=== PATIENT | female | born 1995 | race Caucasian/White ===

== ENCOUNTER 2022-05-02 04:40 | Inpatient (IN) | payer SELFPAY, OTHER ==
[2022-05-02] VITALS (52 sets, daily range): BP systolic 95–161; BP diastolic 59–111; PULSE 52–115; TEMP 36.4–36.8; O2SAT 85–100; BMI 27.6
[2022-05-02] MEDS: Lactated Ringers 1,000 ML 999 ML IV (05:45)
[2022-05-02 06:01] LABS: Absolute Lymphocyte Count 1.39 X10^3/uL (0.83-4.51); Absolute Neutrophil Count 8.8 X10^3/uL (2.0-7.7); Basophil# 0.01 X10^3/uL; Basophil% 0.1 % (0-1); Eosinophil# 0.02 X10^3/uL; Eosinophils% 0.2 % (0-5); Hematocrit 32.9 % (37-47); Hemoglobin 10.2 g/dL (12.0-15.0); Lymphocyte # 1.39 X10^3/ul (0.83-4.51); Lymphocyte % 12.5 % (19-41); Mean Corpuscular Hgb 24.7 pg (27.0-32.0); Mean Corpuscular Volume 79.7 fL (81-99); Mean Platelet Vol. 10.8 fl (6.2-12.0); Monocyte# 0.78 X10^3/uL; NRBC Flagged by Analyzer 0 % (0-5); Neutrophil # 8.83 X10^3/uL (2.7-7.7); Neutrophil % 79.4 % (47-70); Platelet Count 239 K/mm3 (150-450); RBC Distribution Width CV 14.5 % (11.6-14.6); RBC Distribution Width SD 41.6 fl (35.1-43.9); Red Blood Count 4.13 M/mm3 (4.2-5.4); White Blood Count 11.1 K/mm3 (4.4-11.0)
[2022-05-02 06:30] LABS: Bacteria 0 SEEN /hpf (None Seen); Mucous, Urine 0 SEEN /hpf (<or=2+); White Blood Cells 0 SEEN /hpf (0-5)
[2022-05-02 06:44] LABS: Color, Urine Red (Yellow); Glucose, Dipstick Normal (Normal); Ketone-Dipstick 5 mg/dl (Negative); Leukocyte Esterase-Dipstick 500 /ul (Negative); Nitrite-Dipstick Positive (Negative); Occult Blood-Urine 250 /ul (Negative); Protein-Dipstick 100 mg/dl (Negative); Specific Gravity, Urine 1.015 (1.002-1.030); Urine Bilirubin Dipstick Negative (Negative); Urine Clarity Cloudy (Clear); Urine Urobilinogen 1 mg/dl (Normal); Urine pH 6.5 (5.0 - 8.0)
[2022-05-02] MEDS: Acetaminophen 500 MG Tablet PO (06:51)
[2022-05-02 06:59] LABS: Amphetamine Urine VISTA NEGATIVE (<1000 ng/mL); Barbiturate Urine VISTA NEGATIVE (< 200 ng/mL); Benzodiazepine Urine VISTA NEGATIVE (< 200 ng/mL); Cocaine Urine VISTA NEGATIVE (< 300 ng/mL); Ecstacy Urine VISTA NEGATIVE (< 500 ng/mL); Methadone Urine VISTA NEGATIVE (< 300 ng/mL); PCP Urine VISTA NEGATIVE (< 25 ng/mL); Red Blood Cells-Urine > 100 SEEN /hpf (0-5); Squamous Epithelial Cells - UA 5-10 SEEN /hpf (5-10); THC Urine VISTA NEGATIVE (< 50 ng/mL); Vista UDS pH Range 6
[2022-05-02] MEDS: Oxytocin 30 units/NS 500 ml 30 UNITS/500 ML IV.SOLN IV (07:09)
[2022-05-02 08:17] LABS: Group B Strep DNA By PCR Negative (Negative); Internal Control PASS; Probe Check PASS; Specimen Processing Control PASS
[2022-05-02 08:28] LABS: Chlamydia Trachomatis by PCR Negative (Negative); Neisserai gonorrhoeae by PCR Negative (Negative); Probe Check PASS; Sample Adequacy Control PASS; Specimen Processing Control PASS
[2022-05-02 08:44] LABS: Rubella IgG Reactive (Nonreactive); Syphilis Antibodies Non-reactive
[2022-05-02 10:00] LABS: HIV - WCH Non-Reactive (Nonreactive); Hepatitis B Surface Antigen Non-Reactive (Nonreactive); Hepatitis C Antibody Non-Reactive (Nonreactive)
[2022-05-02] MEDS: Lactated Ringers 1,000 ML 200 ML IV ×2 (10:10→14:28)
[2022-05-02] MEDS: Penicillin G 3,000,000 Units 50 ML 100 UNITS IV ×2 (10:10→14:28)
[2022-05-02] MEDS: fentaNYL 100 MCG/2 ML Ampul IV (10:19)
[2022-05-02] MEDS: LACTATED RINGERS 500 ML 999 ML IV (12:12)
[2022-05-02] MEDS: fentaNYL-bupivacaine (epidural) 100 ML BAG EPIDURAL ×2 (13:16→17:55)
--- NOTE | 2022-05-02 17:32 | HP.PCM.OB_ITS ---
HPI - General General Date of Admission: 05/02/22 HPI Narrative LEIGH RILEY, is a 26 F who presents with 24 ROM presents from home had care by a stock layer Evert. she denies any fevers or abdominal pain denies any vb. PFSH PFSH Medical History no medical history Home Medications [id number] 1 mg tablet 1 tab PO DAILY 05/02/22 [History Last Taken 04/30/22 21:00] Allergy/AdvReac Type Severity Reaction Status Date / Time No Known Allergies Allergy Verified 05/02/22 05:07 Surgical History no surgical history Social History Smoking Status: Never smoker History Elective abortions Hx Para 0 Spontaneous abortions Hx # Term Pregnancies Ectopic pregnancies Hx # Pregnancies Multiple births # of living children NST FHR Rate Baby A Baseline: 130 Variability:: Moderate Accelerations:: 15 x 15 Decelerations:: None NST Reactive:: Yes FHR Category:: Category I Uterine Activity:: irregular ROS Constitutional Constitutional: Reports systems reviewed and no addt'l complaints, except as documented Eyes Eyes: Denies change in vision ENT HEENT: Reports systems reviewed and no addt'l complaints, except as documented; Denies headache(s) Cardiovascular Cardiovascular: Reports systems reviewed and no addt'l complaints, except as documented; Denies chest pain or dyspnea Respiratory/Chest Respiratory/Chest: Reports systems reviewed and no addt'l complaints, except as documented Gastrointestinal Gastrointestinal: Reports systems reviewed and no addt'l complaints, except as documented; Denies abdominal pain Genitourinary Genitourinary: Reports systems reviewed and no addt'l complaints, except as documented, contractions Details: present (irregular) and movement Details: present; Denies dysuria or genital lesions Musculoskeletal Musculoskeletal: Reports systems reviewed and no addt'l complaints, except as documented Neurologic Neurologic: Reports systems reviewed and no addt'l complaints, except as documented Endocrine Endocrinology: Reports systems reviewed and no addt'l complaints, except as documented Vital Signs Vital Signs Vital Signs: 05/02/22 05:18 05/02/22 05:18 05/02/22 05:20 Temperature Temperature Source Temporal Pulse Rate 94 Blood Pressure BP Systolic BP Diastolic Pulse Ox 98 05/02/22 05:20 05/02/22 05:20 05/02/22 05:20 Temperature 97.6 F L Temperature Source Pulse Rate 84 Blood Pressure 117/71 BP Systolic 117 BP Diastolic 71 Pulse Ox 05/02/22 07:22 05/02/22 07:22 05/02/22 07:22 Temperature Temperature Source Temporal Pulse Rate 70 Blood Pressure 121/70 H BP Systolic 121 BP Diastolic 70 Pulse Ox 05/02/22 07:22 05/02/22 08:27 05/02/22 08:27 Temperature 97.6 F L Temperature Source Pulse Rate 74 Blood Pressure 131/74 H BP Systolic 131 BP Diastolic 74 Pulse Ox 05/02/22 08:27 05/02/22 08:27 05/02/22 09:44 Temperature 97.6 F L Temperature Source Temporal Pulse Rate Blood Pressure 118/77 BP Systolic 118 BP Diastolic 77 Pulse Ox 05/02/22 09:44 05/02/22 09:43 05/02/22 09:43 Temperature Temperature Source Temporal Pulse Rate 92 Blood Pressure BP Systolic BP Diastolic Pulse Ox 98 05/02/22 09:43 05/02/22 10:58 05/02/22 10:58 Temperature 97.9 F Temperature Source Temporal Pulse Rate Blood Pressure 132/68 H BP Systolic 132 BP Diastolic 68 Pulse Ox 05/02/22 10:58 05/02/22 10:58 05/02/22 10:58 Temperature 97.9 F Temperature Source Pulse Rate 68 Blood Pressure BP Systolic BP Diastolic Pulse Ox 96 05/02/22 12:43 05/02/22 12:43 05/02/22 12:43 Temperature Temperature Source Temporal Pulse Rate 71 Blood Pressure 134/82 H BP Systolic 134 BP Diastolic 82 Pulse Ox 05/02/22 12:43 05/02/22 12:43 05/02/22 12:58 Temperature 97.8 F Temperature Source Pulse Rate 104 H Blood Pressure BP Systolic BP Diastolic Pulse Ox 100 05/02/22 12:58 05/02/22 13:03 05/02/22 13:03 Temperature Temperature Source Pulse Rate 98 Blood Pressure BP Systolic BP Diastolic Pulse Ox 100 99 05/02/22 13:05 05/02/22 13:05 05/02/22 13:08 Temperature Temperature Source Pulse Rate 92 83 Blood Pressure 128/77 H BP Systolic 128 BP Diastolic 77 Pulse Ox 05/02/22 13:08 05/02/22 13:09 05/02/22 13:09 Temperature Temperature Source Pulse Rate 85 Blood Pressure 120/77 BP Systolic 120 BP Diastolic 77 Pulse Ox 100 05/02/22 13:13 05/02/22 13:13 05/02/22 13:14 Temperature Temperature Source Pulse Rate 98 Blood Pressure 118/66 BP Systolic 118 BP Diastolic 66 Pulse Ox 98 05/02/22 13:14 05/02/22 13:18 05/02/22 13:18 Temperature Temperature Source Pulse Rate 77 80 Blood Pressure BP Systolic BP Diastolic Pulse Ox 100 05/02/22 13:20 05/02/22 13:20 05/02/22 13:23 Temperature Temperature Source Pulse Rate 77 84 Blood Pressure 121/70 H BP Systolic 121 BP Diastolic 70 Pulse Ox 05/02/22 13:23 05/02/22 13:25 05/02/22 13:25 Temperature Temperature Source Pulse Rate 93 Blood Pressure 120/69 BP Systolic 120 BP Diastolic 69 Pulse Ox 100 05/02/22 13:28 05/02/22 13:28 05/02/22 13:30 Temperature Temperature Source Pulse Rate 82 Blood Pressure 110/59 L BP Systolic 110 BP Diastolic 59 Pulse Ox 100 05/02/22 13:30 05/02/22 13:30 05/02/22 13:33 Temperature Temperature Source Pulse Rate 88 79 Blood Pressure BP Systolic BP Diastolic Pulse Ox 94 05/02/22 13:33 05/02/22 13:34 05/02/22 13:34 Temperature Temperature Source Pulse Rate 82 Blood Pressure 120/63 BP Systolic 120 BP Diastolic 63 Pulse Ox 100 05/02/22 13:36 05/02/22 13:36 05/02/22 13:38 Temperature Temperature Source Pulse Rate 96 85 Blood Pressure BP Systolic BP Diastolic Pulse Ox 85 05/02/22 13:38 05/02/22 13:39 05/02/22 13:39 Temperature Temperature Source Pulse Rate 96 Blood Pressure 115/67 BP Systolic 115 BP Diastolic 67 Pulse Ox 100 05/02/22 13:43 05/02/22 13:43 05/02/22 13:44 Temperature Temperature Source Pulse Rate 75 Blood Pressure 109/61 BP Systolic 109 BP Diastolic 61 Pulse Ox 100 05/02/22 13:44 05/02/22 13:48 05/02/22 13:48 Temperature Temperature Source Pulse Rate 67 62 Blood Pressure BP Systolic BP Diastolic Pulse Ox 100 05/02/22 13:49 05/02/22 13:49 05/02/22 14:16 Temperature Temperature Source Pulse Rate 64 Blood Pressure 111/62 95/62 BP Systolic 111 95 BP Diastolic 62 62 Pulse Ox 05/02/22 14:16 05/02/22 14:16 05/02/22 14:16 Temperature 97.9 F Temperature Source Temporal Pulse Rate 81 Blood Pressure BP Systolic BP Diastolic Pulse Ox 05/02/22 14:49 05/02/22 14:49 05/02/22 14:48 Temperature Temperature Source Pulse Rate 78 Blood Pressure 111/65 BP Systolic 111 BP Diastolic 65 Pulse Ox 100 05/02/22 14:49 05/02/22 14:49 05/02/22 16:05 Temperature 97.9 F Temperature Source Temporal Pulse Rate Blood Pressure 120/73 BP Systolic 120 BP Diastolic 73 Pulse Ox 05/02/22 16:05 05/02/22 16:04 05/02/22 16:04 Temperature Temperature Source Temporal Pulse Rate 83 Blood Pressure BP Systolic BP Diastolic Pulse Ox 99 05/02/22 16:04 05/02/22 17:12 05/02/22 17:12 Temperature 97.8 F Temperature Source Pulse Rate 85 Blood Pressure 109/69 BP Systolic 109 BP Diastolic 69 Pulse Ox 05/02/22 17:11 05/02/22 17:11 05/02/22 17:11 Temperature 97.8 F Temperature Source Temporal Pulse Rate Blood Pressure BP Systolic BP Diastolic Pulse Ox 100 Weight Weight: 150 lb 12.8 oz Body Mass Index (BMI) 27.6 Physical Exam Const alert, oriented x3, no apparent distress and healthy appearing HEENT normocephalic and moist oral mucous membranes Head and Scalp: atraumatic Neck full ROM, no lymphadenopathy, supple and thyroid normal General: trachea midline Lymph Lymphatic: no lymphadenopathy noted Chest inspection of chest normal Resp normal respiratory effort Cardio regular rate GI normal to inspection, nondistended, normoactive bowel sounds, soft to palpation and non-tender Inspection: gravid external exam normal Manual OB Exam: estimated gestational size appropriate, presentation cephalic, dilated, effaced and station Extremity normal to inspection General Extremity: Negative for edema Skin no rashes or lesions noted Neuro no focal motor deficits and deep tendon reflexes 2+ bilaterally Motor Exam: strength 5/5 throughout and clonus absent Psych mental status grossly normal Labs Labs Labs: Blood Type A POSITIVE Antibody Screen NEGATIVE Hct 32.9 % (37-47) L Hgb 10.2 g/dL (12.0-15.0) L Syphilis Total Ab Non-reactive Rubella IgG Antibody Reactive (Nonreactive) Hep Bs Antigen Non-Reactive (Nonreactive) HIV 1&2 Antibody Non-Reactive (Nonreactive) Group B Strep DNA Negative (Negative) Assessment & Plan (1) : COMMENT: care with stock layer evert (2) Prolonged rupture of membranes: COMMENT: PCN, pitocin started PLAN: Plan Patient presents with prolonged ROM plan IOL, plan management for with pitocin/AROM. Pain management: open to epidural. GBS unknown plan PCN due to risk factor assessment. Management of any complications: none I have reviewed the [facility] and made any clinically relevant updates.
--- NOTE | 2022-05-02 17:34 | EX.PCM.OBRPT ---
Vaginal Delivery Operative Information Date of Procedure: 05/02/22 Pre-Operative Diagnosis: IOL prolonged ROM Post-Operative Diagnosis: same Surgery / Procedure Performed: Spontaneous Vaginal Delivery Type of Anesthesia: Epidural Special Medications: none Estimated Blood Loss: 300 Fluids Replaced: crystalloid Findings Description of Procedure: Patient began pushing and delivered the head in the BLANCA presentation. The head was delivered atraumatically. The anterior and posterior shoulders delivered without complication followed by the rest of the infant and the was placed on the maternal abdomen. Delayed cord clamping was employed for approximately 60 seconds. Cord was clamped and cut and gentle traction was applied to the cord and the placenta delivered spontaneously immediately following it was noted to be intact with three-vessel cord. The perineum and vagina were inspected and noted to have a left vaginal first degree laceration repaired in the usual fashion with 3-0 rapide. EBL was 300. Patient and infant tolerated delivery well. Presentation: BLANCA Amniotic Membrane Rupture Type: Artificial Amniotic Fluid Description: Clear Placental Delivery Description: Spontaneous Placenta Disposition: [facility] Cord Vessel Description: 3 Vessels Cord Entanglement: None Infant A Gender: Male Delayed Cord Clamping: Yes Post Vaginal Delivery Medications Given After Delivery: IV Pitocin Episiotomy Description: None Laceration: Vaginal Extension/lac and 1st degree Complication Complications: None Procedures Urinary/Genital [id number]: [id number] Vaginal Delivery+ Care([facility])
--- NOTE | 2022-05-02 17:46 | DCINST_ITS ---
Discharge Instructions Diet Discharge Diet: No restrictions Activity Discharge Activity: Return to Normal Activity, May Drive, May Shower and May Take a Tub Bath (in 4 weeks) May resume sexual activity in: 6-8 weeks (after seen by OB provider) Weight Bearing Status: Full weight bearing Lifting Restrictions: none Dressing / Incision Call your doctor if you observe: Fever of 101 or Higher, Inability to urinate, Using more than 1 pad per hour (for more than 2 hours in a row or more), Shortness of breath, Dizziness, Chest pain and - (headache not controlled with tylenol, change in vision) Follow Up Care When: in 6 weeks for visit, call the office to make the appointment. If you had elevated blood pressures call the office to be seen within 1 week. Test Results: Test results from this visit will be discussed in further detail at your follow- up appointment, if applicable. Discharge Plan Admission Admit Date/Time: 05/02/22 04:40 Attending Provider: Rose Hansen Primary Care Provider: Care Physician,Aaliyah Primary Discharge Orders/Prescriptions Prescriptions: No Action 1 mg Tablet 1 tab PO DAILY Referrals / Follow Up: Care Physician,No Primary [Primary Care Provider] - Disposition Disposition (needs filled in before D/C Order can be placed): Home, Self Care
[2022-05-02] MEDS: Oxytocin 30 units/NS 500 ml 30 UNITS/500 ML IV.SOLN 334 UNITS IV (18:39)
[2022-05-03] VITALS (15 sets, daily range): BP systolic 90–146; BP diastolic 49–71; PULSE 80–120; RESP 16; TEMP 36.2–36.9; O2SAT 95–98
[2022-05-03] MEDS: Acetaminophen 500 MG Tablet 1000 MG PO (00:14)
[2022-05-03] MEDS: Ibuprofen 400 MG Tablet 800 MG PO ×2 (06:30→19:04)
--- NOTE | 2022-05-03 07:58 | PCM.PN.OB ---
Subjective Subjective Patient doing well without complaints. Tolerating PO. Ambulating and voiding without difficulty. feeding well. Denies chest pain, shortness of breath, calf pain/swelling, fevers, chills, lightheadedness. Objective Data Objective Data Vital Signs: Vital Signs Temp Pulse Resp BP Pulse Ox O2 Del Method 98.2 F 80 16 90/49 L 98 Room Air 05/03/22 03:33 05/03/22 07:46 05/03/22 03:33 05/03/22 07:46 05/03/22 07:45 05/03/22 03:33 Oxygen Delivery Method Room Air Weight: 150 lb 12.8 oz Body Mass Index (BMI) 27.6 Intake & Output: Intake and Output for Last 24 Hours 05/01/22 05/02/22 05/03/22 23:59 23:59 23:59 Intake Total 4030.87 / 4030.87 Output Total 400 / 400 900 / 900 Balance 3630.87 / 3630.87 -900 / -900 Lab / Micro Data Result Diagrams: 05/02/22 05:43 Labs: Laboratory Results - last 24 hr 05/02/22 05:43: Syphilis Total Ab Non-reactive, Rubella IgG Antibody Reactive 05/02/22 05:43: Hep Bs Antigen Non-Reactive, Hepatitis C Antibody Non-Reactive, HIV 1&2 Antibody Non-Reactive 05/02/22 05:57: Chlam trachomat DNA PCR Negative, N.gonorrhoeae DNA (PCR) Negative, Group B Strep DNA Negative, Specimen Comment Not Reportable ROS Constitutional Constitutional: Reports systems reviewed and no addt'l complaints, except as documented Cardiovascular Cardiovascular: Reports systems reviewed and no addt'l complaints, except as documented Respiratory/Chest Respiratory/Chest: Reports systems reviewed and no addt'l complaints, except as documented Gastrointestinal Gastrointestinal: Reports systems reviewed and no addt'l complaints, except as documented Physical Exam Const alert, oriented x3 and no apparent distress HEENT Head and Scalp: atraumatic Resp normal respiratory effort GI soft to palpation and non-tender Bimanual Exam - Vag & Uterus: uterus non-tender Uterus Palpation: uterus fundus firm (below Umbilicus) Assessment & Plan (1) Prolonged rupture of membranes: COMMENT: PCN, pitocin started (2) : COMMENT: care with track laying supervisor alexi (3) Vaginal delivery: COMMENT: MARSHALL Currie PROM 40 associate field service engineer patient PLAN: Plan s/p PPD # 1 1. routine post delivery care 2. breast feeding- support given 3. rh positive 4. rubella immune
[2022-05-04 02:27] VITALS: BP 108/66; PULSE 83; RESP 14; TEMP 36.1
[2022-05-04 08:53] VITALS: BP 121/71; PULSE 100; PULSE 103; PULSE 93; RESP 16; TEMP 36.8; O2SAT 98
--- NOTE | 2022-05-04 09:12 | PN.OBGYN_ITS ---
Subjective Subjective Patient doing well without complaints. Tolerating PO. Ambulating and voiding without difficulty. feeding well. Denies chest pain, shortness of breath, calf pain/swelling, fevers, chills, lightheadedness. Objective Data Objective Data Vital Signs: Vital Signs Temp Pulse Resp BP Pulse Ox O2 Del Method 98.2 F 100 16 121/71 H 98 Room Air 05/04/22 08:53 05/04/22 08:53 05/04/22 08:53 05/04/22 08:53 05/04/22 08:53 05/04/22 08:53 Oxygen Delivery Method Room Air Weight: 150 lb 12.8 oz Body Mass Index (BMI) 27.6 Intake & Output: Intake and Output for Last 24 Hours 05/02/22 05/03/22 05/04/22 23:59 23:59 23:59 Intake Total 4030.87 / 4030.87 Output Total 400 / 400 900 / 900 Balance 3630.87 / 3630.87 -900 / -900 Lab / Micro Data Result Diagrams: 05/02/22 05:43 ROS Constitutional Constitutional: Reports systems reviewed and no addt'l complaints, except as documented Cardiovascular Cardiovascular: Reports systems reviewed and no addt'l complaints, except as documented Respiratory/Chest Respiratory/Chest: Reports systems reviewed and no addt'l complaints, except as documented Gastrointestinal Gastrointestinal: Reports systems reviewed and no addt'l complaints, except as documented Physical Exam Const alert, oriented x3 and no apparent distress HEENT Head and Scalp: atraumatic Resp normal respiratory effort GI soft to palpation and non-tender Bimanual Exam - Vag & Uterus: uterus non-tender Uterus Palpation: uterus fundus firm (below Umbilicus) Assessment & Plan (1) Vaginal delivery: COMMENT: SM boy Kush PROM 41 film waxer patient (2) Prolonged rupture of membranes: COMMENT: PCN, pitocin started (3) : COMMENT: care with visual display manager alexi
== END 2022-05-04 11:00 | disposition home or self-care (01) | DRG 807 ==
PROVIDERS: Obstetrics & Gynecology; Admitting Provider Obstetrics & Gynecology; Visit Provider Obstetrics & Gynecology
DX: O42.92 Full-term premature rupture of membranes, unspecified as to length of time between rupture and onset of labor (principal); Z37.0 Single live birth; O70.0 First degree perineal laceration during delivery; Z3A.40 40 weeks gestation of pregnancy
CPT/HCPCS: 59025; 59050; 80307; 81001; 85025; 86703; 86762; 86780; 86803; 86850; 86900; 86901; 87081; 87340; 87491; 87591; 87653; 99218; J7120; G0378